=== PATIENT | female | born 1965 | race Caucasian/White ===

== ENCOUNTER 2017-12-23 13:57 | Emergency (ER) | payer SELFPAY ==
--- NOTE | 2017-12-23 14:26 | ER Document Report ---
ED Medical Screen (RME) - General Chief Complaint: Foot Pain Stated Complaint: RIGHT FOOT INJURY, PAIN, SWELLING Time Seen by Provider: 12/23/17 14:10 Notes: 17 days ago this 52-year-old female dropped a fire extinguisher on her right foot. Admitted to the ER now 5 separate times at other hospital. Was already placed on Keflex as well as Bactrim and has completed course of both. Continues to have increased pain, redness, swelling and drainage from the right foot. I have greeted and performed a rapid initial assessment of this patient. A comprehensive ED assessment and evaluation of the patient, analysis of test results and completion of the medical decision making process will be conducted by additional ED providers. TRAVEL OUTSIDE OF THE [place] IN LAST 30 DAYS: No - Related Data Allergies/Adverse Reactions: ketorolac tromethamine [From Toradol] Allergy (Verified 12/23/17 14:23) Past Medical History - Social History Chew tobacco use (# tins/day): No Frequency of alcohol use: None Drug Abuse: None Pulmonary Medical History: Reports: Hx Asthma Neurological Medical History: Reports: Hx Migraine Endocrine Medical History: Reports: Hx Diabetes Mellitus Type 2 - "borderline" Renal/ Medical History: Denies: Hx Peritoneal Dialysis GI Medical History: Reports: Hx Irritable Bowel Psychiatric Medical History: Reports: Hx Anxiety, Hx Depression Past Surgical History: Reports: Hx Breast Surgery - lumpectomy, Hx Section - x3, Hx Gynecologic Surgery - D&C, Hx Tubal Ligation, Hx Urinary Tract Surgery - Immunizations Immunizations up to date: Yes Hx Diphtheria, Pertussis, Tetanus Vaccination: Yes - <5 yr Review of Systems - Review of Systems Notes: Review of systems for the following: Right foot pain, calf pain, swelling, drainage and redness Physical Exam - Vital signs Vitals: Temp Pulse Resp BP Pulse Ox 98.2 F 111 H 18 152/78 H 97 12/23/17 14:05 12/23/17 14:05 12/23/17 14:05 12/23/17 14:05 12/23/17 14:05 - Respiratory Respiratory status: No respiratory distress Chest status: Nontender Breath sounds: Normal Chest palpation: Normal - Cardiovascular Rhythm: Tachycardia Heart sounds: Normal auscultation Murmur: No - Extremities General upper extremity: Normal inspection, Nontender, Normal color, Normal ROM , Normal temperature General lower extremity: Other - Right foot is swollen. There is signs of erythema and possible cellulitis. There is breakdown in the skin on the top of the foot with eschar present. There is small amount of active drainage.. No: Vaibhav's sign Course - Vital Signs Vital signs: Temp Pulse Resp BP Pulse Ox 98.2 F 111 H 18 152/78 H 97 12/23/17 14:05 12/23/17 14:05 12/23/17 14:05 12/23/17 14:05 12/23/17 14:05
[2017-12-23 14:56] LABS: ABSOLUTE BASOPHILS # (AUTO) 0.1 10^3/uL (0.0-0.2); ABSOLUTE EOSINOPHILS # (AUTO) 0.1 10^3/uL (0.0-0.6); ABSOLUTE LYMPHOCYTES (AUTO) 2.4 10^3/uL (0.5-4.7); ABSOLUTE MONOCYTES (AUTO) 0.5 10^3/uL (0.1-1.4); ABSOLUTE NEUT (AUTO) 5.8 10^3/uL (1.7-8.2); BASOPHILS % (AUTO) 0.8 % (0-2); EOSINOPHILS % (AUTO) 1.1 % (0-6); HEMATOCRIT 37.6 % (36.0-47.0); HEMOGLOBIN 12.7 g/dL (12.0-15.5); LYMPHOCYTES % (AUTO) 27.4 % (13-45); MEAN CORPUSCULAR HEMOGLOBIN 30.8 pg (27.0-33.4); MEAN CORPUSCULAR HGB CONC 33.8 g/dL (32.0-36.0); MEAN CORPUSCULAR VOLUME 91 fl (80-97); MONOCYTES % (AUTO) 5.8 % (3-13); PLATELET COUNT 263 10^3/uL (150-450); RED BLOOD COUNT 4.13 10^6/uL (3.72-5.28); RED CELL DISTRIBUTION WIDTH 13.3 % (11.5-14.0); SEGMENTED NEUTROPHILS % (AUTO) 64.9 % (42-78); TOTAL CELLS COUNTED % (AUTO) 100 %; WHITE BLOOD COUNT 8.9 10^3/uL (4.0-10.5)
[2017-12-23 15:18] LABS: ALANINE AMINOTRANSFERASE 32 U/L (9-52); ALBUMIN 4.2 g/dL (3.5-5.0); ALKALINE PHOSPHATASE 87 U/L (38-126); ANION GAP 13 (5-19); ASPARTATE AMINO TRANSFERASE 35 U/L (14-36); BILIRUBIN,DIRECT 0.2 mg/dL (0.0-0.4); BILIRUBIN,TOTAL 0.3 mg/dL (0.2-1.3); BLOOD UREA NITROGEN 18 mg/dL (7-20); C-REACTIVE PROTEIN 23.4 mg/L (<10.0); CALCIUM 9.8 mg/dL (8.4-10.2); CARBON DIOXIDE 29 mmol/L (22-30); CHLORIDE 102 mmol/L (98-107); GLUCOSE 113 mg/dL (75-110); POTASSIUM 4.7 mmol/L (3.6-5.0); SODIUM 144.1 mmol/L (137-145); TOTAL PROTEIN 7.3 g/dL (6.3-8.2)
[2017-12-23] MEDS ORDERED: CLINDAMYCIN PHOSPHATE INJ 300 MG/2 ML SDV IV ONE (15:19)
--- NOTE | 2017-12-23 15:26 | ER Document Report ---
ED Extremity Problem, Lower - General Chief Complaint: Foot Pain Stated Complaint: RIGHT FOOT INJURY, PAIN, SWELLING Time Seen by Provider: 12/23/17 14:10 Notes: 50-year-old female presents to the ER complaining of right foot pain and swelling. On December 07 the patient had oral surgery and actually knocked the fires to ensure off that night and landed on her foot. She had a small wound at that point. She has been on Keflex and Bactrim and now the wound is starting to get worse. States she has some leg swelling. Describes burning pain which she rates as moderate to severe worse with movement. She denies any fevers but has had chills. Denies chest pain denies shortness of breath denies abdominal pain. TRAVEL OUTSIDE OF THE [place] IN LAST 30 DAYS: No - Related Data Allergies/Adverse Reactions: ketorolac tromethamine [From Toradol] Allergy (Verified 12/23/17 14:23) Past Medical History - Social History Smoking Status: Never Smoker Chew tobacco use (# tins/day): No Frequency of alcohol use: None Drug Abuse: None Family History: Reviewed & Not Pertinent, CAD, DM, Hyperlipidemia, Hypertension , Malignancy Patient has suicidal ideation: No Patient has homicidal ideation: No Pulmonary Medical History: Reports: Hx Asthma Neurological Medical History: Reports: Hx Migraine Endocrine Medical History: Reports: Hx Diabetes Mellitus Type 2 - "borderline" Renal/ Medical History: Denies: Hx Peritoneal Dialysis GI Medical History: Reports: Hx Irritable Bowel Psychiatric Medical History: Reports: Hx Anxiety, Hx Depression Past Surgical History: Reports: Hx Breast Surgery - lumpectomy, Hx Section - x3, Hx Gynecologic Surgery - D&C, Hx Tubal Ligation, Hx Urinary Tract Surgery - Immunizations Immunizations up to date: Yes Hx Diphtheria, Pertussis, Tetanus Vaccination: Yes - <5 yr Review of Systems - Review of Systems Constitutional: Chills. denies: Fever Cardiovascular: denies: Chest pain, Dyspnea Respiratory: denies: Short of breath Gastrointestinal: denies: Abdominal pain, Nausea, Vomiting Musculoskeletal: Other - Foot pain Skin: Lesions -: Yes All other systems reviewed and negative Physical Exam - Vital signs Vitals: Temp Pulse Resp BP Pulse Ox 98.2 F 111 H 18 152/78 H 97 12/23/17 14:05 12/23/17 14:05 12/23/17 14:05 12/23/17 14:05 12/23/17 14:05 - Notes Notes: GENERAL_APPEARANCE: well_nourished but obese, alert, cooperative, no_acute_ distress, no_obvious_discomfort. VITALS: reviewed, see vital signs table. HEAD: no_swelling\\tenderness on the head. EYES: PERRL, EOMI, conjunctiva_clear. NOSE: no_nasal_discharge. MOUTH: (-)decreased moisture. THROAT: no_throat_inflammation, no_airway_obstruction. no_lymphadenopathy NECK: supple, no_neck_tenderness, (-)thyromegaly. BACK: no_back_tenderness. CHEST_WALL: no_chest_tenderness. LUNGS: no_wheezing, no_rales, no_rhonchi, (-)accessory muscle use, good air exchange bilateral. HEART: normal_rate, normal_rhythm, normal_S1, normal_S2, (-)S3, (-)S4, no_ murmur, no_rub. ABDOMEN: normal_BS, soft, no_abd_tenderness, (-)guarding, (-)rebound, no_ organomegaly, no_abd_masses. EXTREMITIES: Dorsum of the right foot is red and swollen there are several ulcers/scabbed over lesions. It is red and warm to the touch redness does not cross the ankle. Is just the dorsum of the foot. There is no calf pain or leg swelling. SKIN: warm, dry, good_color, no_rash. MENTAL_STATUS: speech_clear, oriented_X_3, normal_affect, responds_ appropriately to questions. Course - Re-evaluation Re-evalutation: 12/23/17 15:27 Patient arrives with cellulitis to the wound of her right foot. She had a course of 10 days of Bactrim and Keflex. It is still red she has completed that. We will get an x-ray and blood work. 12/23/17 17:50 No DVT noted. Patient does have some fluid pockets under the foot this is either abscess or hematoma with all the redness and heat and concern for abscess I did do incision and drainage which looks to be a lot of old blood and pus. The patient likely had an infected hematoma. I expressed that what I could the patient did not tolerate much due to pain. Was unable to pack it. The patient will be placed on clindamycin and discharged home gave her good instructions on when to return - Vital Signs Vital signs: Temp Pulse Resp BP Pulse Ox 98.2 F 111 H 18 152/78 H 97 12/23/17 14:05 12/23/17 14:05 12/23/17 14:05 12/23/17 14:05 12/23/17 14:05 - Laboratory Result Diagrams: 12/23/17 14:43 12/23/17 14:43 Laboratory results interpreted by me: 12/23/17 12/23/17 14:43 14:43 ESR 60 H Glucose 113 H C-Reactive Protein 23.4 H Procedures - Incision and Drainage Right Dorsal Foot Time completed: 17:47 Type: Simple Anesthetic type: 2% Lidocaine, Other mL's of anesthetic: 4 Blade size: 11 - With therapy I&D procedure: Chlorprep applied Incision Method: Incision made by scalpel Amount/type of drainage: 5 cc Notes: 12/23/17 17:46 Patient had infected hematoma of the right foot. This was incised and drained in about 5-10 cc of pus and dark clot drained from the foot. Discharge - Discharge Clinical Impression: Foot abscess, right, Hematoma Condition: Good Disposition: HOME, SELF-CARE Instructions: Abscess ([facility]), Post Incision and Drainage Additional Instructions: Take antibiotics as prescribed pain medicine as prescribed. Allow the wound to continue draining. Will close on its own. If the redness increases past the ankle you develop a fever of 101 or above return to the ER Prescriptions: Clindamycin HCl [Cleocin 300 mg Capsule] 300 mg PO QID #40 capsule Oxycodone HCl/Acetaminophen [Percocet 5-325 mg Tablet] 1 - 2 tab PO Q4H PRN #25 tablet PRN Reason:
[2017-12-23 15:32] LABS: ERYTHROCYTE SEDIMENTATION RATE 60 mm/hr (0-30)
--- NOTE | 2017-12-23 16:07 | RADIOLOGY REPORT (SQ) ---
EXAM DESCRIPTION: VENOUS UNILATERAL LOWER COMPLETED DATE/TIME: 12/23/2017 3:54 pm REASON FOR STUDY: foot , calf and leg pain COMPARISON: None. TECHNIQUE: Dynamic and static alston scale and color images acquired of the right leg venous system. S elected spectral images acquired with additional compression and augmentation maneuvers. The contrala teral common femoral vein and saphenofemoral junction were also imaged. Images stored on PACS. LIMITATIONS: None. FINDINGS: COMMON FEMORAL: Normal phasicity, compression and augmentation. No visualized echogenic ma terial on alston scale. No defects on color images. FEMORAL: Normal compression and augmentation. No visualized echogenic material on alston scale. No defe cts on color images. POPLITEAL: Normal compression, augmentation. No visualized echogenic material on alston scale. No defec ts on color images. CALF VESSELS: Normal compression, augmentation. No visualized echogenic material on alston scale. No de fects on color images. GSV and SSV: Normal compression, augmentation. No visualized echogenic material on alston scale. No def ects on color images. ANY DEEP VENOUS INSUFFICIENCY: Not evaluated. ANY EVIDENCE OF POPLITEAL CYST: No. OTHER: No other significant finding. CONTRALATERAL COMMON FEMORAL VEIN AND SAPHENOFEMORAL JUNCTION: Normal phasicity, compression and augmentation. No visualized echogenic material on alston scale. No de fects on color images. IMPRESSION: NO EVIDENCE DVT OR SVT IN THE RIGHT LEG. TECHNICAL DOCUMENTATION: JOB ID: [id number] [employer]- All Rights Reserved Reading location - IP/workstation name: [email or web address]
--- NOTE | 2017-12-23 16:09 | RADIOLOGY REPORT (SQ) ---
EXAM DESCRIPTION: FOOT RIGHT 2 VIEWS COMPLETED DATE/TIME: 12/23/2017 3:56 pm REASON FOR STUDY: foot pain and swelling trauma COMPARISON: None. NUMBER OF VIEWS: Two views. TECHNIQUE: AP and lateral radiographic images acquired of the right foot. LIMITATIONS: Lack of oblique imaging limits evaluation of the proximal metatarsals. FINDINGS: MINERALIZATION: Normal. BONES: No acute fracture or dislocation. No worrisome bone lesions. Limited evaluation of the proxi mal metatarsals. JOINTS: No effusions. SOFT TISSUES: Dorsal soft tissue swelling. OTHER: No other significant finding. IMPRESSION: Soft tissue swelling. No obvious fracture. Proximal metatarsals poorly seen without oblique imaging. TECHNICAL DOCUMENTATION: JOB ID: [id number] [employer]- All Rights Reserved Reading location - IP/workstation name: [email or web address]
[2017-12-23] MEDS ORDERED: DIAZEPAM INJ 10 MG/2 ML DISP.SYRIN IV ONE (16:49)
[2017-12-23] MEDS ORDERED: LIDOCAINE 2%/EPINEPHRINE INJ 20 ML VIAL ONE (17:22)
[2017-12-23 18:04] VITALS: BP 124/87
== END 2017-12-23 18:37 | disposition home or self-care (01) ==
LOC: ER 13:57
DX: L02.611 Cutaneous abscess of right foot (principal)
CPT/HCPCS: 99283; 96375; 96365; 36415; 85025; 85652; 86140; 80053; 93971; 73620; 10060; A6266; J3490 ×2; J3360

== ENCOUNTER 2019-05-30 11:51 | Emergency (ER) | payer SELFPAY ==
[2019-05-30] MEDS ORDERED: NORMAL SALINE 1000 ML 1,000 ML IV ONE (13:31)
[2019-05-30 13:37] LABS: RBCS (WET MOUNT) 4+ RBCS SEEN; T.VAGINALIS (WET MOUNT) NO TRICHOMONAS SEEN; WBCS (WET MOUNT) FEW WBCS SEEN; YEAST (WET MOUNT) NO YEAST SEEN
--- NOTE | 2019-05-30 13:37 | ER Document Report ---
ED General - General Chief Complaint: Vaginal Bleeding Stated Complaint: DIZZY/NAUSEA/WEAK Time Seen by Provider: 05/30/19 12:38 Notes: 54-year-old female presents emergency department with 2 different complaints. Initial complaint is that when she woke up this morning she was nauseated, dizzy and the left side of her back was painful and numb and it was associated with some upper abdominal pain that radiates into the left side of her chest. Patient states that the weakness and the dizziness is worse with standing and moving around. States she feels very shaky as well. States she checked her blood sugar and it was 112. States she tried to drive herself to the emergency department but felt so weak and shaky that she could not use her clutch so she stopped at the rescue squad and was brought here. Patient has never had this happen before. Patient's secondary concern is that she has been having sporadic vaginal bleeding on and off for approximately 2 years and thinks she may be perimenopausal. Patient states that it has been significantly heavier over the past 2 weeks and even worse over the past 5 to 6 days. States that she is having large clots and heavier bleeding and last evening it was associated with a sharp stabbing pain in her left lower quadrant that then resolved. Patient is now just concerned because she is having heavier bleeding, she is also concerned because she has recently started using sex toys and after using them she has had increased bleeding, though there was no pain when using the toys. Patient states the toys are small and egg shaped and she thinks they were mostly used externally rather than internally during phone sex with her long distance boyfriend. TRAVEL OUTSIDE OF THE [place] IN LAST 30 DAYS: No - Related Data Allergies/Adverse Reactions: ketorolac tromethamine [From Toradol] Allergy (Verified 12/23/17 14:23) Past Medical History - General Information source: Patient - Social History Smoking Status: Former Smoker Frequency of alcohol use: None Drug Abuse: None - Quit smoking marijuana over 10 years ago. Family History: CAD, DM, Hyperlipidemia, Hypertension, Malignancy Patient has suicidal ideation: No Patient has homicidal ideation: No Pulmonary Medical History: Reports: Hx Asthma Neurological Medical History: Reports: Hx Migraine Endocrine Medical History: Reports: Hx Diabetes Mellitus Type 2 - "borderline" Renal/ Medical History: Denies: Hx Peritoneal Dialysis GI Medical History: Reports: Hx Irritable Bowel Psychiatric Medical History: Reports: Hx Anxiety, Hx Depression Past Surgical History: Reports: Hx Breast Surgery - lumpectomy, Hx Section - x3, Hx Gynecologic Surgery - D&C, Hx Tubal Ligation, Hx Urinary Tract Surgery - Immunizations Immunizations up to date: Yes Hx Diphtheria, Pertussis, Tetanus Vaccination: Yes - <5 yr Review of Systems - Review of Systems Constitutional: See HPI, Weakness. denies: Chills, Diaphoresis, Fever EENT: No symptoms reported Cardiovascular: See HPI, Chest pain, Dizziness Respiratory: No symptoms reported. denies: Cough, Hurts to breathe, Short of breath Gastrointestinal: Abdominal pain, Nausea, Constipation. denies: Diarrhea, Vomiting Female Genitourinary: See HPI, Irregular period, Vaginal bleeding Musculoskeletal: No symptoms reported Neurological/Psychological: See HPI, Weakness -: Yes All other systems reviewed and negative Physical Exam - Vital signs Vitals: Pulse Ox 96 05/30/19 12:09 Interpretation: Normal - Notes Notes: GENERAL: Alert, interacts well. No acute distress. HEAD: Normocephalic, atraumatic EYES: Pupils equal, round and reactive to light, extraocular movements intact. ENT: Oral mucosa moist, tongue midline. NECK: Full range of motion, supple, trachea midline. LUNGS: Clear to auscultation bilaterally, no wheezes, rales or rhonchi, no respiratory distress. HEART: Regular rate and rhythm, no murmurs, gallops, rubs. ABDOMEN: Soft, nontender, nondistended, bowel sounds present in all 4 quadrants. : Unremarkable external female genitalia, pelvic examination does reveal mild to moderate bleeding from the cervical loss, small amount of blood pooling in the vagina, easily swabbed away, no clots. No masses seen. No cervical motion tenderness to palpation though there was pain when I open to the speculum. EXTREMITIES: Moves all 4 extremities spontaneously, no edema, radial and dorsalis pedis pulses 2/4 bilaterally. No cyanosis. NEUROLOGICAL: Alert and oriented x3, normal speech, cranial nerves II through XII grossly intact, biceps and patellar DTRs 2+ bilaterally. [id number] and heel lerner testing intact. 5 out of 5 muscle strength in all 4 extremities. Ambulates without difficulty. Complains of slightly decreased sensation to the right foot, decreased sensation is in a stocking type distribution, does not follow a known dermatome. 5 out of 5 great toe raising strength bilaterally. PSYCH: Normal mood, normal affect. SKIN: Warm, Dry, normal turgor, no rashes or lesions noted. Course - Re-evaluation Re-evalutation: 05/30/19 19:16 CBC unremarkable, no anemia, CMP unremarkable, troponin negative x2, lipase normal, urinalysis is contaminated with 182 red blood cells, likely due to her vaginal bleeding. Wet prep shows red blood cells but no Trichomonas and no yeast. GC and Chlamydia are negative. Transvaginal US 05/30/19 13:29 IMPRESSION: Normal size uterus without large fibroids. Grossly normal endometrial stripe Nonvisualization of the ovaries Chest X-Ray 05/30/19 13:30 IMPRESSION: NO ACUTE RADIOGRAPHIC FINDING IN THE CHEST. Head CT 05/30/19 13:31 IMPRESSION: No acute or significant abnormality. EVIDENCE OF ACUTE STROKE: NO. Patient has no signs of cauda equina syndrome. Did discuss with the patient that the pain and numbness that she had on the left side of her back that then transition to the right side of her back that could be connected to the decreased sensation in her right foot. Discussed in depth with patient further outpatient work-up that she may wish to pursue and warning signs of cauda equina syndrome that should prompt immediate return. Also discussed potential benefit of weight loss in this patient for back pain and some radicular type symptoms. Did discuss with patient that with her vaginal bleeding it is important to continue to follow-up with her [employer], I do suspect this is normal perimenopausal bleeding however if it persists or worsens she should make sure she discusses it with her decision science analyst. 05/30/19 19:24 Patient has not been weak and shaky since arrival, able to ambulate without difficulty, blood pressure has normalized. - Vital Signs Vital signs: Temp Pulse Resp BP Pulse Ox 98.7 F 109 H 17 118/59 L 96 05/30/19 12:51 05/30/19 12:51 05/30/19 14:19 05/30/19 14:19 05/30/19 14:19 - Laboratory Result Diagrams: 05/30/19 12:37 05/30/19 12:37 Laboratory results interpreted by me: 05/30/19 05/30/19 05/30/19 12:37 12:37 12:37 RDW 14.7 H Glucose 112 H Urine Protein 100 H Urine Glucose (UA) >=500 H Urine Blood LARGE H - EKG Interpretation by Me Additional EKG results interpreted by me: 05/30/19 19:23 EKG shows sinus rhythm at a rate of 98, normal axis, normal intervals, no ST segment elevations or depressions, no T wave inversions per my interpretation. Discharge - Discharge Clinical Impression: Perimenopausal menorrhagia, Paresthesia of right foot, Shakiness Condition: Stable Disposition: HOME, SELF-CARE Additional Instructions: Today you were not anemic, there was no evidence of severe blood loss on your labwork. We did not find any signs of infection in your urine or in your vagina. There was no sign of heart attack. For the pain in your back and the decreased sensation in your right foot it is likely that you have a pinched nerve in your back. Low Back Pain Three out of every four people will have an episode of disabling back pain during their lifetime. Most commonly the pain is due to straining of the muscles and ligaments in the low back. Usual treatment includes: (1) Rest on a firm surface. Avoid lying on your stomach. (2) Ice pack the painful area. After a few days, gentle heat may be used intermittently to relax the area, or ice packs can be continued. (3) Medication may be needed -- muscle relaxers and antiinflammatory medicines are commonly used. (4) As the back improves, exercises are prescribed to strengthen the back and abdominal muscles. Your doctor will advise you on the proper care for your back at each stage in your recovery. You may be better in a few days -- or healing may take several weeks. If new symptoms of a "herniated disc" (radiation of pain, numbness, or tingling down the back of the leg or weakness in the leg) occur, you should be re-examined. Further testing may be necessary. If you have complete loss of sensation to your feet, loss of sensation between your legs (saddle anesthesia) as we discussed, loss of ability to move either foot, inability to control your bowels or your bladder or any new or concerning symptoms please return immediately to the emergency department. Please discuss possible physical therapy with your primary care physician or your [employer].
[2019-05-30 13:43] LABS: ABSOLUTE EOSINOPHILS # (AUTO) 0.2 10^3/uL (0.0-0.6); ABSOLUTE MONOCYTES (AUTO) 0.4 10^3/uL (0.1-1.4); ABSOLUTE NEUT (AUTO) 3.9 10^3/uL (1.7-8.2); BASOPHILS % (AUTO) 0.6 % (0-2); EOSINOPHILS % (AUTO) 3.5 % (0-6); HEMATOCRIT 40.1 % (36.0-47.0); HEMOGLOBIN 13.5 g/dL (12.0-15.5); LYMPHOCYTES % (AUTO) 30.5 % (13-45); MEAN CORPUSCULAR HEMOGLOBIN 30.2 pg (27.0-33.4); MEAN CORPUSCULAR HGB CONC 33.6 g/dL (32.0-36.0); MEAN CORPUSCULAR VOLUME 90 fl (80-97); MONOCYTES % (AUTO) 6.8 % (3-13); PLATELET COUNT 246 10^3/uL (150-450); RED BLOOD COUNT 4.47 10^6/uL (3.72-5.28); RED CELL DISTRIBUTION WIDTH 14.7 % (11.5-14.0); SEGMENTED NEUTROPHILS % (AUTO) 58.6 % (42-78); TOTAL CELLS COUNTED % (AUTO) 100 %; WHITE BLOOD COUNT 6.6 10^3/uL (4.0-10.5)
[2019-05-30 13:49] LABS: ALBUMIN 4.3 g/dL (3.5-5.0); ALKALINE PHOSPHATASE 110 U/L (38-126); ANION GAP 9 (5-19); ASPARTATE AMINO TRANSFERASE 30 U/L (14-36); BILIRUBIN,TOTAL 0.6 mg/dL (0.2-1.3); BLOOD UREA NITROGEN 18 mg/dL (7-20); CALCIUM 9.4 mg/dL (8.4-10.2); CARBON DIOXIDE 24 mmol/L (22-30); CHLORIDE 105 mmol/L (98-107); CREATINE KINASE 43 U/L (30-135); GLUCOSE 112 mg/dL (75-110); POTASSIUM 4.3 mmol/L (3.6-5.0); TOTAL PROTEIN 7.4 g/dL (6.3-8.2)
[2019-05-30 14:01] LABS: CREATINE KINASE MB 0.34 ng/mL (<4.55)
[2019-05-30 14:04] LABS: APPEARANCE,URINE CLOUDY; BILIRUBIN,URINE NEGATIVE (NEGATIVE); COLOR,URINE RED; GLUCOSE, URINE >=500 mg/dL (NEGATIVE); KETONES,URINE NEGATIVE (NEGATIVE); LEUKOCYTE ESTERASE,URINE NEGATIVE (NEGATIVE); NITRITE,URINE NEGATIVE (NEGATIVE); PROTEIN,URINE 100 mg/dL (NEGATIVE); URINE SPECIFIC GRAVITY 1.021; UROBILINOGEN,URINE NEGATIVE mg/dL (<2.0)
[2019-05-30 14:05] LABS: TROPONIN I < 0.012 ng/mL
--- NOTE | 2019-05-30 14:24 | RADIOLOGY REPORT (SQ) ---
EXAM DESCRIPTION: CT HEAD WITHOUT IMAGES COMPLETED DATE/TIME: 05/30/2019 2:10 pm REASON FOR STUDY: dizziness, known h/o brain cyst COMPARISON: None. TECHNIQUE: Axial images acquired through the brain without intravenous contrast. Images reviewed wi th bone, brain and subdural windows. Additional sagittal and coronal reconstructions were generated. Images stored on PACS. All CT scanners at this facility use dose modulation, iterative reconstruction, and/or weight based d osing when appropriate to reduce radiation dose to as low as reasonably achievable (ALARA). [facility]: Dose Right [facility]: CareDose [facility]: Dose Right [facility]: Teradose 4D [facility]: Eigenta RADIATION DOSE: CT Rad equipment meets quality standard of care and radiation dose reduction techniq ues were employed. CTDIvol: 53.2 mGy. DLP: 1044 mGy-cm. mGy. LIMITATIONS: None. FINDINGS: VENTRICLES: Small colloid cyst just inferior to septum pellucidum. CEREBRUM: No masses. No hemorrhage. No midline shift. No evidence for acute infarction. Normal gra y/white matter differentiation. No areas of low density in the white matter. CEREBELLUM: No masses. No hemorrhage. No alteration of density. No evidence for acute infarction. EXTRAAXIAL SPACES: No fluid collections. No masses. ORBITS AND GLOBE: No intra- or extraconal masses. Normal contour of globe without masses. CALVARIUM: No fracture. PARANASAL SINUSES: No fluid or mucosal thickening. SOFT TISSUES: No mass or hematoma. OTHER: No other significant finding. IMPRESSION: No acute or significant abnormality. EVIDENCE OF ACUTE STROKE: NO. COMMENT: Quality ID # [id number]: Final reports with documentation of one or more dose reduction techniques (e.g., Automated exposure control, adjustment of the mA and/or kV according to patient size, use of iterative reconstruction technique) TECHNICAL DOCUMENTATION: JOB ID: [id number] 2010 [employer]- All Rights Reserved Reading location - IP/workstation name: [email or web address]
--- NOTE | 2019-05-30 14:29 | RADIOLOGY REPORT (SQ) ---
EXAM DESCRIPTION: CHEST SINGLE VIEW IMAGES COMPLETED DATE/TIME: 05/30/2019 2:00 pm REASON FOR STUDY: upper abd/lower chest pain COMPARISON: None. EXAM PARAMETERS: NUMBER OF VIEWS: One view. TECHNIQUE: Single frontal radiographic view of the chest acquired. RADIATION DOSE: NA LIMITATIONS: None. FINDINGS: LUNGS AND PLEURA: No opacities, masses or pneumothorax. No pleural effusion. MEDIASTINUM AND HILAR STRUCTURES: No masses. Contour normal. HEART AND VASCULAR STRUCTURES: Heart normal in size. Normal vasculature. BONES: No acute findings. HARDWARE: None in the chest. OTHER: No other significant finding. IMPRESSION: NO ACUTE RADIOGRAPHIC FINDING IN THE CHEST. TECHNICAL DOCUMENTATION: JOB ID: [id number] 2010 [employer]- All Rights Reserved Reading location - IP/workstation name: [email or web address]
[2019-05-30 15:10] LABS: CHLAM PCR NOT DETECTED (NOT DETECT)
--- NOTE | 2019-05-30 15:36 | RADIOLOGY REPORT (SQ) ---
EXAM DESCRIPTION: U/S NON OB PEL TV W/DOPPLER IMAGES COMPLETED DATE/TIME: 05/30/2019 3:21 pm REASON FOR STUDY: heavy vaginal bleeding COMPARISON: Pelvis Ultrasound 12/08/2013 TECHNIQUE: Dynamic and static grayscale images acquired of the pelvis via transvaginal approach and recorded on PACS. Additional selected color Doppler and spectral images recorded. LIMITATIONS: Large body habitus, pelvic bowel gas, limited evaluation of endometrial stripe. Ovaries not visualized due to adnexal bowel gas FINDINGS: UTERUS: Contour normal. No mass. Uterus is 10 x 5 x 6 cm in size ENDOMETRIAL STRIPE: Limited visualization, 11 mm in thickness. No gross endometrial polyps or masses . CERVIX: Nabothian cysts. There is mucus, fluid or debris in the endocervical canal RIGHT OVARY AND DOPPLER: Ovary not visualized. LEFT OVARY AND DOPPLER: Ovary not visualized. FREE FLUID: None noted. OTHER: No other significant finding. IMPRESSION: Normal size uterus without large fibroids. Grossly normal endometrial stripe Nonvisualization of the ovaries TECHNICAL DOCUMENTATION: JOB ID: [id number] [employer]- All Rights Reserved Rev-06/23 Reading location - IP/workstation name: [id number]
[2019-05-30 19:40] VITALS: BP 136/88
--- NOTE | 2019-05-30 23:56 | EKG REPORT ---
SEVERITY:- NORMAL ECG - SINUS RHYTHM : Confirmed by: Cami Hastings 30-May-2019 23:56:06
== END 2019-05-30 19:46 | disposition home or self-care (01) ==
LOC: ER 11:51
DX: N95.0 Postmenopausal bleeding (principal); K59.00 Constipation, unspecified; R11.0 Nausea; R42 Dizziness and giddiness; R20.0 Anesthesia of skin; R20.8 Other disturbances of skin sensation; R53.1 Weakness; R07.9 Chest pain, unspecified; M54.9 Dorsalgia, unspecified; J45.909 Unspecified asthma, uncomplicated; Z87.891 Personal history of nicotine dependence; Z87.19 Personal history of other diseases of the digestive system; Z88.8 Allergy status to other drugs, medicaments and biological substances
CPT/HCPCS: 93005; 99284; 96360; 96361; 86900; 86901; 36415; 82553; 87210; 86850; 82550; 83690; 85025; 80053; 81001; 84484; 87491; 87591; 71045; 76830; 93976; 70450; 93010; J7030